=== PATIENT | female | born 1970 | race Caucasian/White ===

== ENCOUNTER 2018-01-03 11:54 | Emergency (ER) | payer SELFPAY ==
--- NOTE | 2018-01-03 12:52 | Emergency Department Record ---
History of Present Illness - General Chief complaint: Pain Stated complaint: RIGHT SHOULDER PAIN Time Seen by Provider: 01/03/18 12:46 Source: Patient Mode of Arrival: Ambulatory Limitations: No limitations - History of Present Illness Initial comments: 47 yo female presents with several weeks of right shoulder pain. the onset was about 3 weeks ago. She awoke with pain. She has had a gradual increase in pain since then. No specific injury. She woke up with the shoulder pain initially. No fevers or chills. She does not have a PCP so it has not been checked. No weakness. No swelling. MD Complaint: Extremity pain, Joint pain Onset/Timin -: Week(s) Location: Right, Shoulder Radiation: None Severity scale (1-10): 9 Quality: Aching, Sharp Consistency: Constant Improves with: Nothing Worsens with: Nothing - Related Data Previous Rx's Medication Instructions Recorded Cyclobenzaprine HCl [Flexeril] 10 mg PO TID #20 tablet 01/03/18 Hydrocodone/Acetaminophen [Mcewen 1 each PO Q6H #15 tablet 01/03/18 5-325 Tablet] Allergies Allergy/AdvReac Type Severity Reaction Status Date / Time No Known Drug Allergies Allergy Verified 01/03/18 13:42 Travel Screening - Travel/Exposure Within Last 30 Days Have you traveled within the last 30 days?: No - Travel/Exposure Within Last Year Have you traveled outside the [place] in the last year?: No - Additonal Travel Details Have you been exposed to anyone with a communicable illness?: No - Travel Symptoms Symptom Screening: None Review of Systems Constitutional: Denies: Chills, Fever, Malaise, Weakness Eyes: Denies: Eye discharge ENT: Denies: Congestion, Throat pain Respiratory: Denies: Cough, Dyspnea, Hemoptysis, Wheezes Cardiovascular: Denies: Chest pain, Palpitations, Syncope Endocrine: Denies: Fatigue Gastrointestinal: Denies: Abdominal pain, Diarrhea, Nausea, Vomiting Genitourinary: Denies: Dysuria, Urgency Musculoskeletal: Reports: As per HPI, Arthralgia, Myalgia. Denies: Back pain, Joint swelling Skin: Denies: Bruising, Change in color Neurological: Denies: Confusion, Headache, Numbness, Weakness Psychiatric: Denies: Anxiety Hematological/Lymphatic: Denies: Blood Clots, Easy bleeding, Easy bruising, Swollen glands Past Medical History - SOCIAL HISTORY Smoking Status: Never smoker Alcohol Use: Rare Drug Use: None - RESPIRATORY Hx Respiratory Disorders: No - CARDIOVASCULAR Hx Cardio Disorders: Yes Hx Hypertension: Yes Comment:: murmer - NEURO Hx Neuro Disorders: No - GI Hx GI Disorders: No - Hx Genitourinary Disorders: No - ENDOCRINE Hx Endocrine Disorders: No - MUSCULOSKELETAL Hx Musculoskeletal Disorders: Yes Hx Arthritis: Yes - PSYCH Hx Psych Problems: No - HEMATOLOGY/ONCOLOGY Hx Hematology/Oncology Disorders: No Family Medical History Any Significant Family History?: No Physical Exam - General General Appearance: Alert, Oriented x3, Cooperative, No acute distress Limitations: No limitations - Head Head exam: Normal inspection - Eye Eye exam: Normal appearance, PERRL. negative: Conjunctival injection, Scleral icterus - ENT ENT exam: Normal exam, Mucous membranes moist. negative: Normal orophraynx, TM' s normal bilaterally Ear exam: Normal external inspection Nasal Exam: Normal inspection Mouth exam: Normal external inspection, Tongue normal Teeth exam: Normal inspection. negative: Dental caries Throat exam: Normal inspection. negative: Tonsillar erythema, Tonsillar exudate - Neck Neck exam: Normal inspection, Full ROM. negative: Tenderness - Respiratory Respiratory exam: Normal lung sounds bilaterally. negative: Respiratory distress - Cardiovascular Cardiovascular Exam: Regular rate, Normal rhythm, Normal heart sounds Peripheral Pulses: 2+: Radial (R) - Rectal Rectal exam: Deferred - exam: Deferred - Extremities Extremities exam: Normal inspection, Joint swelling, Normal capillary refill. negative: Calf tenderness, Full ROM, Pedal edema, Tenderness - Back Back exam: Reports: Normal inspection, Full ROM. Denies: Muscle spasm, Rash noted, Tenderness - Neurological Neurological exam: Alert, Normal gait, Oriented X3, Reflexes normal - Psychiatric Psychiatric exam: Normal affect, Normal mood - Skin Skin exam: Dry, Intact, Normal color, Warm Course Vital Signs 01/03/18 01/03/18 12:29 12:39 Temperature 98.2 F Pulse Rate 74 Respiratory 16 Rate Blood Pressure 200/104 [Left Arm] Pulse Ox 98 - Reevaluation(s) Reevaluation #1: 01/03/18 13:42 XR demonstrated multiple loose bodies in the joint space. No fracture or dislocation She was informed she will need a new PCP and likely ortho referral if not improved We discussed ONLY using the sling for support. She is to take her arm out every 3-4 hours to move it to prevent stiffness. Disposition Disposition: Discharge Clinical Impression: Sprain of shoulder, right Qualifiers: Encounter type: initial encounter Shoulder sprain type: unspecified sprain Qualified Code(s): S43.401A - Unspecified sprain of right shoulder joint, initial encounter Disposition: Home, Self-Care Condition: (1) Good Instructions: Shoulder Sprain (ED) Additional Instructions: Ice the shoulder 3 times daily Gently stretch the arm and shoulder to prevent stiffness ONLY use the sling for support if going somewhere. You must use the shoulder to prevent stiffness or frozen shoulder. Prescriptions: Cyclobenzaprine HCl [Flexeril] 10 mg PO TID #20 tablet Hydrocodone/Acetaminophen [Mcewen 5-325 Tablet] 1 each PO Q6H #15 tablet Referrals: LIZETT GTZ [MEDICAL DOCTOR] - Forms: Patient Portal Access Time of Disposition: 13:45 Quality - Quality Measures Quality Measures: N/A - Blood Pressure Screening Does Patient Have Any of the Following: No Blood Pressure Classification: Hypertensive Reading Systolic Measurement: 187 Diastolic Measurement: 90 Screening for High Blood Pressure: < Pre-Hypertensive BP, F/U Documented > [ [id number]] Pre-Hypertensive Follow-up Interventions: Referral to alternative/primary care provider.
[2018-01-03] MEDS ORDERED: KETOROLAC 30 MG/ML VIAL IM ONE (12:54)
--- NOTE | 2018-01-04 08:48 | RADIOLOGY REPORT ---
EXAM: RIGHT SHOULDER HISTORY: PAIN. TECHNIQUE: Three views of the right shoulder were performed. FINDINGS: There are multiple radiopaque densities in the superolateral aspect of the joint space. Findings are likely related to loose bodies. No evidence of fracture or dislocation. IMPRESSION: MULTIPLE RADIOPAQUE LOOSE BODIES IN THE SUPEROLATERAL ASPECT OF THE JOINT SPACE. JOB NUMBER: [id number] MTDD
== END 2018-01-03 14:08 | disposition home or self-care (01) ==
LOC: ER 11:54
DX: S43.401A Unspecified sprain of right shoulder joint, initial encounter (principal); X58.XXXA Exposure to other specified factors, initial encounter; I10 Essential (primary) hypertension
CPT/HCPCS: 99283; 96372; 99284; 73030; J1885